=== PATIENT | female | born 1980 | race Caucasian/White ===

== ENCOUNTER → 2016-12-23 | Outpatient (REF) | payer OTHER | LOC: M LAB REF 11:47 | PROVIDERS: ATTEND Nurse Practitioner Adult Health | DX: E83.52 Hypercalcemia (principal) ==

== ENCOUNTER → 2018-03-18 | Outpatient (REF) | payer OTHER ==
[2018-03-18 19:32] LABS: PTH INTACT 201.5 PG/ML (18.5-88.0)
== END ==
LOC: M LAB REF 17:38
DX: E83.52 Hypercalcemia (principal)

== ENCOUNTER → 2018-06-21 | Outpatient (REF) | payer OTHER | LOC: M LAB REF 17:28 | PROVIDERS: ATTEND Nurse Practitioner Adult Health | DX: E83.52 Hypercalcemia (principal) ==

== ENCOUNTER → 2018-09-20 | Outpatient (REF) | payer OTHER ==
[2018-09-20 09:41] LABS: CALCIUM, 24 HOUR URINE 649.7 MG/24HR (42-353); CALCIUM, URINE 29.2 MG/DL
== END ==
LOC: M LAB REF 08:43
PROVIDERS: ATTEND Student in an Organized Health Care Education/Training Program
DX: E21.3 Hyperparathyroidism, unspecified (principal)

== ENCOUNTER → 2022-12-08 | Outpatient (REF) | payer OTHER | LOC: M LAB REF 16:13 | PROVIDERS: ATTEND Nurse Practitioner Adult Health | DX: E83.52 Hypercalcemia (principal) ==

== ENCOUNTER → 2023-06-16 | Outpatient (REF) | payer OTHER ==
[2023-06-16 17:34] LABS: HEMATOCRIT 38.9 % (36.0-47.0)
[2023-06-16 18:05] LABS: PTH INTACT 52.7 PG/ML (18.5-88.0)
[2023-06-16 18:07] LABS: FERRITIN 13.6 NG/ML (7.3-270.7)
[2023-06-17 16:53] LABS: PERCENT SATURATION 19.9 % (13.2-45.0)
== END ==
LOC: M LAB REF 16:46
PROVIDERS: ATTEND Nurse Practitioner Adult Health
DX: E83.52 Hypercalcemia (principal); D64.9 Anemia, unspecified

== ENCOUNTER → 2024-08-03 | Outpatient (REF) | payer OTHER ==
[2024-08-03 16:53] LABS: HEMATOCRIT 36.8 % (36.0-47.0); HEMOGLOBIN 11.8 g/dl (12.0-15.5); MEAN CORPUSCULAR HEMOGLOBIN 28.8 pg (27.0-33.0); MEAN CORPUSCULAR HGB CONC 32.1 g/dl (32.0-36.5); MEAN CORPUSCULAR VOLUME 89.8 fl (80.0-96.0); PLATELET COUNT, AUTOMATED 304 10^3/uL (150-450); WHITE BLOOD COUNT 8.8 10^3/uL (4.0-10.0)
[2024-08-03 18:18] LABS: ATYPICAL LYMPH 5 % (0-5); EOSINOPHILS 4 % (0-3); LYMPHOCYTES 20 % (16-44); MONOCYTES 3 % (0-5); NEUTROPHILS 67 % (28-66); PLATELET ESTIMATE NORMAL (NORMAL)
== END ==
LOC: M LAB REF 16:20
PROVIDERS: ATTEND Nurse Practitioner Adult Health
DX: D72.829 Elevated white blood cell count, unspecified (principal)

== ENCOUNTER → 2025-02-22 | Outpatient (CLI) | payer OTHER ==
[~2025-02-22] MED LIST: [UNRECOGNIZED DRUG - CODE]
== END ==
LOC: M ADAMS 15:40
PROVIDERS: ATTEND Student in an Organized Health Care Education/Training Program
DX: J90 Pleural effusion, not elsewhere classified (principal)

== ENCOUNTER 2025-03-22 18:47 | Emergency (ER) | payer OTHER ==
[2025-03-22 20:17] LABS: VENOUS BASE EXCESS 0.6 (-2.0-2.0); VENOUS HCO3 24.8 MMOL/L (23.0-27.0); VENOUS O2 SATURATION 91.8 % (60.0-80.0); VENOUS PARTIAL PRESSURE CO2 38.3 mmHg (38.0-50.0); VENOUS PARTIAL PRESSURE O2 62.4 mmHg (30.0-50.0); VENOUS PH 7.429 UNITS (7.330-7.430); VENOUS STANDARD HCO3 24.9 MMOL/L; VENOUS TOTAL CO2 26.0 MMOL/L (24.0-28.0)
[2025-03-22 20:30] LABS: BASO # 0.1 10^3/uL (0.0-0.2); BASO % 0.5 % (0.0-1.0); EOS # 0.3 10^3/uL (0.0-0.5); EOS % 2.5 % (0.0-3.0); LYMPH # 2.0 10^3/uL (1.5-5.0); LYMPH % 17.2 % (24.0-44.0); MONO # 0.8 10^3/uL (0.0-0.8); MONO % 6.9 % (2.0-8.0); NEUTROPHILS # 8.2 10^3/uL (1.5-8.5); NEUTROPHILS % 72.4 % (36.0-66.0); PLATELET COUNT, AUTOMATED 374 10^3/uL (150-450)
[2025-03-22] MEDS ORDERED: ISOVUE-370 76% 100 ML VIAL As Ordered ONE (20:39)
[2025-03-22 20:46] LABS: CK-MB VALUE MASS 1.2 NG/ML (<3.6)
[2025-03-22 20:50] LABS: CPK CREATINE PHOSPHOKINASE 73.0 U/L (34-145); MB/CK RELATIVE INDEX 1.64 (< OR =4)
[2025-03-22 20:59] LABS: CK-MB VALUE MASS 1.2 NG/ML (<3.6)
[2025-03-22 21:00] LABS: ALT/SGPT 59 U/L (7.0-40); AST/SGOT 35 U/L (<34); CALCIUM LEVEL 9.1 MG/DL (8.5-10.1); CARBON DIOXIDE LEVEL 24 MMOL/L (20-31); CHLORIDE LEVEL 107 MMOL/L (98-107); CPK CREATINE PHOSPHOKINASE 72 U/L (34-145); CREATININE FOR GFR 0.66 MG/DL (0.55-1.30); GLOMERULAR FILTRATION RATE > 90.0 (>58); MB/CK RELATIVE INDEX 1.66 (< OR =4); POTASSIUM SERUM 4.0 MMOL/L (3.5-5.1); SODIUM LEVEL 142 MMOL/L (136-145)
[2025-03-23 00:53] VITALS: BP 171/75; TEMP 97.2; O2SAT 99
== END 2025-03-23 02:49 | disposition home or self-care (01) ==
LOC: M ED 18:47
DX: R42 Dizziness and giddiness (principal); R00.1 Bradycardia, unspecified; Q07.00 Arnold-Chiari syndrome without spina bifida or hydrocephalus; J91.8 Pleural effusion in other conditions classified elsewhere; I10 Essential (primary) hypertension; E78.5 Hyperlipidemia, unspecified; Z88.0 Allergy status to penicillin
CPT/HCPCS: 36415; 70450; 70496; 70498; 70551; 71045; 71260; 80047; 80048; 80076; 82550; 82553; 82803; 83690; 83880; 84443; 84484; 85025; 85379; 93005; 93041; 94760; 99285; Q9967